=== PATIENT | male | born 1955 | race Hispanic/Latino ===

== ENCOUNTER 2018-03-17 10:50 | Emergency (ER) | payer SELFPAY ==
[2018-03-17] MEDS ORDERED: SODIUM CHLORIDE 0.9% 1000ML 1,000 ML ONE ×2 (10:57→11:05)
[2018-03-17 11:11] VITALS: TEMP 96.9
[2018-03-17] MEDS ORDERED: SODIUM CHLORIDE 0.9% 1000ML 1,000 ML IVS ONE (11:11)
[2018-03-17] MEDS ORDERED: NITROGLYCERIN 0.4 MG 25 EA TAB SL ONE (11:11)
[2018-03-17] MEDS ORDERED: ATORVASTATIN 20 MG TAB PO ONE (11:12)
[2018-03-17] MEDS ORDERED: ASPIRIN (CHEWABLE) 81 MG TAB PO ONE (11:13)
[2018-03-17] MEDS ORDERED: HEPARIN SODIUM (PORCINE) 5,000 U/ML VIAL IV ONE (11:13)
[2018-03-17] MEDS ORDERED: CLOPIDOGREL 75 MG TAB PO ONE (11:13)
--- NOTE | 2018-03-17 11:14 | ED.PDOC ---
History of Present Illness - General Chief Complaint: Chest Pain/OK Time Seen by Provider: 03/17/18 11:11 Source: patient, family Exam Limitations: no limitations - History of Present Illness Initial Comments: patient comes in today with 20 minute onset of severe left-sided chest pain that feels like its pressure-like, like his heart wants to stop, associated with diaphoresis, nausea, and shortness of breath. He has never experienced this chest pain before and he has no heart history he is aware of. However, patient was charis outside today when he became ill. He's had no trauma or injury to the area. Prior to this he was in his usual health and denies any fever, chills, cough or cold symptoms. He does however have diabetes that requires insulin for control and he is a smoker of more than 10 pack years. Patient has no heart disease in his family but his parents both at early ages. Patient is brought in with his son today. Timing/Duration: 1/2 hour Severity/Quality: severe, pressure Location: other - L chest wall Chest Pain Radiation: no radiation Activities at Onset: activity Prior Chest Pain/Cardiac Workup: no prior chest pain, no prior cardiac workup Improving Factors: medication Nitro Today/Relief: 0.4 mg x 1, provided by ED Aspirin Treatment Today: 325 mg x 1 Associated Symptoms: diaphoresis, nausea/vomiting, shortness of breath Allergies/Adverse Reactions: Allergies NO KNOWN ALLERGY Allergy (Verified 03/17/18 11:09) Review of Systems - Review of Systems Constitutional: States: diaphoresis, weakness. Denies: fever EENTM: Denies: no symptoms reported Respiratory: States: orthopnea. Denies: cough, wheezing Cardiology: States: chest pain. Denies: edema, palpitations, syncope Gastrointestinal/Abdominal: States: nausea. Denies: abdominal pain, vomiting Genitourinary: States: no symptoms reported Musculoskeletal: States: no symptoms reported Skin: States: no symptoms reported Past Medical History (General) - Patient Medical History Hx Stroke: No Hx Congestive Heart Failure: No Hx Diabetes: Yes Surgical History: no surgical history Physical Exam - Physical Exam General Appearance: Obvious distress, Ill Appearing Eyes, Ears, Nose, Throat Exam: PERRL/EOMI, normal ENT inspection Neck: non-tender, full range of motion, supple, normal inspection Respiratory: chest non-tender, lungs clear, normal breath sounds, no respiratory distress Cardiovascular/Chest: normal peripheral pulses, regular rate, rhythm, no edema, no gallop Peripheral Pulses: radial,right: 2+, radial,left: 2+ Gastrointestinal/Abdominal: normal bowel sounds, non tender, soft, no organomegaly Extremity: non-tender Neurologic: alert, oriented x 3 Skin Exam: diaphoresis Progress - Progress Progress: 03/17/18 11:15 patient on initial evaluation and EKG was immediate release found to have STEMI. Patient was still hurting severely on arrival. Aspirin was given at 325 mg 1. Patient was placed on oxygen and nitroglycerin 1 was given as well as starting boluses of normal saline anticipation of most likely hypotension after the administration of the nitroglycerin. Plavix was ordered at 300 mg and heparin drip as well as statin were also ordered at this time. Immediate call for transfer emergently via air to [facility] was placed for STEMI. 03/17/18 11:[address] Monreal and he requested fibrinolysis as he was still hurting and we could not give more nitro. Heparin was stopped and fibrinolysis ordered. - EKG/XRAY/CT EKG: ST elevation Comments: HR [address] elevation in the inferior leads normal axis Departure - Departure Clinical Impression: STEMI (ST elevation myocardial infarction) Qualifiers: Involved coronary artery: unspecified coronary artery Qualified Code(s): I21.3 - ST elevation (STEMI) myocardial infarction of unspecified site Disposition: Transfer to Hospital Condition: Serious Departure Forms: ED Discharge - Pt. Copy, Patient Portal Self Enrollment Instructions: DI for Chest Pain Critical Care Note - Critical Care Note Total Time (mins): 39 Comments: patient with 39 minutes of continuous care for STEMI. See note for full detail.
[2018-03-17] MEDS ORDERED: TENECTEPLASE 50 MG VIAL ONE (11:20)
[2018-03-17 11:25] VITALS: O2SAT 100
[2018-03-17] MEDS ORDERED: HEPARIN PREMIX 25,000 UNITS in PREMIX BAG 1 BAG IVS SCH (11:30)
[2018-03-17] MEDS ORDERED: TENECTEPLASE 50 MG VIAL IV ONE (11:30)
[2018-03-17 11:42] VITALS: BP 119/65
== END 2018-03-17 11:49 | disposition short-term general hospital (02) ==
LOC: ER 10:56
DX: I21.3 ST elevation (STEMI) myocardial infarction of unspecified site (principal); E11.9 Type 2 diabetes mellitus without complications; F17.200 Nicotine dependence, unspecified, uncomplicated; R11.2 Nausea with vomiting, unspecified; Z79.4 Long term (current) use of insulin
CPT/HCPCS: 36415; 80048; 82550; 82553; 84484; 85025; 85610; 85730; 93005; J1644; J3101; J7030